=== PATIENT | female | born 1935 | race Caucasian/White ===

== ENCOUNTER 2023-04-07 14:19 | Inpatient (IN) | payer MEDICARE, OTHER ==
[2023-04-07 15:13] LABS: #Basophils 0.1 thou/uL (0.0-0.2); #Eosinphils 0.2 thou/uL (0.0-0.7); #Monocytes 0.6 thou/uL (0.11-0.59); #Neutrophils 3.6 thou/uL (1.40-6.50); %Basophils 0.9 % (0.0-1.0); %Eosinophils 4.1 % (0.0-10.0); %Lymphocytes 18.7 % (21.0-51.0); %Monocytes 10.2 % (0.0-10.0); %Neutrophils 65.7 % (42.0-75.0); Hemoglobin 9.5 g/dL (12.0-16.0); Mean Corpuscular HGB CONC 31.8 g/dL (32.0-36.0); Mean Corpuscular Volume 97.7 fl (78.0-98.0); Mean Platelet Volume 10.6 fL (7.4-10.4); Platelet Count 205 10x3/uL (130-400); RBC Distribution Width 13.8 % (11.5-14.5); Red Blood Cell (RBC) Count 3.06 mill/uL (4.20-5.40); White Blood Cell (WBC) Count 5.4 10x3/uL (4.8-10.8)
[2023-04-07 15:43] LABS: ALT (SGPT) 7 U/L (8-55); AST (SGOT) 15 U/L (5-34); Albumin 3.5 g/dL (3.4-4.8); Alkaline Phosphatase 54 U/L (40-110); Anion Gap 12 mmol/L (10-20); BUN (Urea Nitrogen) 26 mg/dL (9.8-20.1); Bilirubin, Total 0.6 mg/dL (0.2-1.2); Calc. Creatinine Clearance 0 mL/min (70-130); Calcium 9.1 mg/dL (7.8-10.44); Carbon Dioxide 22 mmol/L (23-31); Chloride 105 mmol/L (98-107); Estimated GFR 48; Globulin 2.7 g/dL (2.4-3.5); Glucose 127 mg/dL (83-110); Lipase 20 U/L (8-78); Potassium 4.3 mmol/L (3.5-5.1); Protein, Total 6.2 g/dL (5.8-8.1); Sodium 135 mmol/L (136-145)
[2023-04-07] MEDS ORDERED: Digoxin 0.5 MG/2 ML AMP ONE (17:21)
[2023-04-07] MEDS ORDERED: Ondansetron ODT 4 MG TAB PO PRN (18:43)
[2023-04-07] MEDS ORDERED: Senokot S 8.6-50 MG TAB PO PRN (18:43)
[2023-04-07] MEDS ORDERED: Ondansetron PF 4 MG/2 ML Vial IVP PRN (18:43)
[2023-04-07] MEDS ORDERED: dilTIAZem 125 MG in Sodium Chloride 0.9% 100 ML IVPB SCH (19:30)
[2023-04-07 19:45] LABS: Thyroid Stimulating Hormone 3.1116 uIU/mL (0.35-4.94)
[2023-04-07 21:53] VITALS: BMI 27.0
[2023-04-07 22:20] LABS: Magnesium 1.7 mg/dL (1.6-2.6)
[2023-04-07 22:25] LABS: Troponin I Less than 0.010 ng/mL (< 0.028)
[2023-04-08 00:36] LABS: Troponin I 0.019 ng/mL (< 0.028)
[2023-04-08] MEDS: traMADol HCl 50 MG TAB PO PRN (02:24)
[2023-04-08 03:43] LABS: #Eosinphils 0.2 thou/uL (0.0-0.7); #Monocytes 0.4 thou/uL (0.11-0.59); #Neutrophils 2.6 thou/uL (1.40-6.50); %Basophils 0.7 % (0.0-1.0); %Eosinophils 5.6 % (0.0-10.0); %Lymphocytes 24.1 % (21.0-51.0); %Monocytes 10.2 % (0.0-10.0); %Neutrophils 59.4 % (42.0-75.0); Hemoglobin 9.6 g/dL (12.0-16.0); Mean Corpuscular HGB CONC 31.8 g/dL (32.0-36.0); Mean Corpuscular Hemoglobin 30.7 pg (27.0-31.0); Mean Corpuscular Volume 96.5 fl (78.0-98.0); Mean Platelet Volume 10.2 fL (7.4-10.4); Platelet Count 174 10x3/uL (130-400); RBC Distribution Width 13.6 % (11.5-14.5); Red Blood Cell (RBC) Count 3.13 mill/uL (4.20-5.40); White Blood Cell (WBC) Count 4.3 10x3/uL (4.8-10.8)
[2023-04-08 04:09] LABS: Anion Gap 15 mmol/L (10-20); BUN (Urea Nitrogen) 23 mg/dL (9.8-20.1); Calc. Creatinine Clearance 40 mL/min (70-130); Calcium 9.2 mg/dL (7.8-10.44); Carbon Dioxide 20 mmol/L (23-31); Chloride 105 mmol/L (98-107); Estimated GFR 57; Glucose 98 mg/dL (83-110); Potassium 4.7 mmol/L (3.5-5.1); Sodium 135 mmol/L (136-145)
[2023-04-08] MEDS ORDERED: dilTIAZem 125 MG in Sodium Chloride 0.9% 100 ML IVPB SCH ×2 (05:30→12:30)
[2023-04-08 05:45] LABS: Magnesium 1.7 mg/dL (1.6-2.6)
[2023-04-08] MEDS ORDERED: Metoprolol Tartrate 5 MG/5 ML VIAL IVP SCH (08:15)
[2023-04-08] MEDS: Aspirin Chewable 81 MG TAB PO SCH (08:30)
[2023-04-08] MEDS ORDERED: dilTIAZem 30 MG TAB PO SCH (09:00)
[2023-04-08 14:03] LABS: Bacteria/HPF None Seen HPF (None Seen); Bilirubin Negative (Negative); Blood, Urine Negative (Negative); CAUTI Indications for Culture Dysuria,urgency,freq; Clarity Clear (Clear); Glucose, Urine (Dipstick) Normal (Negative); Ketone, Urine Negative (Negative); Leukocyte 25 Leu/uL (Negative); Nitrite Negative (Negative); Protein, Urine (Dipstick) Negative (Neg-Trace); RBC/HPF 0-3 HPF (0-3); Specific Gravity, Urine 1.013 (1.002-1.036); Squamous Epithelial 0-3 HPF (0-3); Urobilinogen Normal mg/dL (Less than 2); WBC/HPF 0-3 HPF (0-3); pH, Urine 5.5 (5.0-9.0)
[2023-04-08 14:06] LABS: Urine Culture Reflex No No
[2023-04-08] MEDS ORDERED: Digoxin 0.5 MG/2 ML AMP SLOW IVP SCH (18:45)
[2023-04-09] MEDS ORDERED: Metoprolol Tartrate 5 MG/5 ML VIAL IVP SCH (01:00)
[2023-04-09 05:08] LABS: #Eosinphils 0.2 thou/uL (0.0-0.7); #Monocytes 0.6 thou/uL (0.11-0.59); #Neutrophils 3.9 thou/uL (1.40-6.50); %Basophils 0.7 % (0.0-1.0); %Eosinophils 3.1 % (0.0-10.0); %Lymphocytes 19.3 % (21.0-51.0); %Monocytes 10.2 % (0.0-10.0); %Neutrophils 66.5 % (42.0-75.0); Hemoglobin 9.8 g/dL (12.0-16.0); Mean Corpuscular HGB CONC 32.5 g/dL (32.0-36.0); Mean Corpuscular Hemoglobin 30.7 pg (27.0-31.0); Mean Corpuscular Volume 94.7 fl (78.0-98.0); Mean Platelet Volume 10.6 fL (7.4-10.4); Platelet Count 187 10x3/uL (130-400); RBC Distribution Width 13.3 % (11.5-14.5); Red Blood Cell (RBC) Count 3.19 mill/uL (4.20-5.40); White Blood Cell (WBC) Count 5.8 10x3/uL (4.8-10.8)
[2023-04-09 05:48] LABS: Anion Gap 11 mmol/L (10-20); BUN (Urea Nitrogen) 27 mg/dL (9.8-20.1); Calc. Creatinine Clearance 31 mL/min (70-130); Carbon Dioxide 23 mmol/L (23-31); Chloride 104 mmol/L (98-107); Estimated GFR 42; Glucose 102 mg/dL (83-110); Iron 30 ug/dL (50-170); Iron Binding Capacity, Total 238 mcg/dL (265-497); Magnesium 1.9 mg/dL (1.6-2.6); Potassium 4.6 mmol/L (3.5-5.1); Sodium 133 mmol/L (136-145)
[2023-04-09 06:19] LABS: Iron 30 ug/dL (50-170); Iron Binding Capacity, Total 233 mcg/dL (265-497)
[2023-04-09] MEDS: Digoxin 0.125 MG TAB PO SCH (09:17)
[2023-04-09] MEDS: Aspirin Chewable 81 MG TAB PO SCH (09:17)
[2023-04-09] MEDS: traMADol HCl 50 MG TAB PO PRN (13:41)
[2023-04-09 17:00] LABS: Digoxin 2.35 ng/mL (0.8-2.0)
[2023-04-09] MEDS: Acetaminophen 325 MG TAB PO PRN (21:01)
[2023-04-10] MEDS: Melatonin 3 MG TAB PO PRN (01:18)
[2023-04-10 05:08] LABS: #Eosinphils 0.2 thou/uL (0.0-0.7); #Monocytes 0.6 thou/uL (0.11-0.59); #Neutrophils 3.4 thou/uL (1.40-6.50); %Basophils 0.7 % (0.0-1.0); %Eosinophils 4.1 % (0.0-10.0); %Lymphocytes 26.4 % (21.0-51.0); %Monocytes 10.6 % (0.0-10.0); %Neutrophils 57.9 % (42.0-75.0); Hemoglobin 9.8 g/dL (12.0-16.0); Mean Corpuscular HGB CONC 32.2 g/dL (32.0-36.0); Mean Corpuscular Hemoglobin 30.6 pg (27.0-31.0); Mean Platelet Volume 10.5 fL (7.4-10.4); Platelet Count 183 10x3/uL (130-400); RBC Distribution Width 13.2 % (11.5-14.5); White Blood Cell (WBC) Count 5.9 10x3/uL (4.8-10.8)
[2023-04-10 06:01] LABS: Anion Gap 12 mmol/L (10-20); BUN (Urea Nitrogen) 20 mg/dL (9.8-20.1); Calc. Creatinine Clearance 48 mL/min (70-130); Calcium 8.9 mg/dL (7.8-10.44); Carbon Dioxide 21 mmol/L (23-31); Chloride 103 mmol/L (98-107); Estimated GFR 71; Glucose 94 mg/dL (83-110); Magnesium 1.8 mg/dL (1.6-2.6); Potassium 4.1 mmol/L (3.5-5.1); Sodium 132 mmol/L (136-145)
[2023-04-10] MEDS: Furosemide 20 MG TAB PO SCH (09:16)
[2023-04-10] MEDS: Digoxin 0.125 MG TAB PO SCH (09:16)
[2023-04-10] MEDS: traMADol HCl 50 MG TAB PO PRN (09:16)
[2023-04-10] MEDS: Aspirin Chewable 81 MG TAB PO SCH (09:16)
[2023-04-10] MEDS ORDERED: Lidocaine 4% Patch TD SCH (09:30)
[2023-04-10] MEDS: Ferrous Gluconate 324 MG TAB PO SCH (09:35)
[2023-04-10] MEDS: Senokot S 8.6-50 MG TAB PO SCH (20:10)
[2023-04-10] MEDS: Transdermal Patch Removal TOP SCH (20:11)
[2023-04-11] MEDS: Acetaminophen 325 MG TAB PO PRN (00:36)
[2023-04-11] MEDS: Melatonin 3 MG TAB PO PRN (00:36)
[2023-04-11] MEDS: traMADol HCl 50 MG TAB PO PRN ×2 (04:14→20:20)
[2023-04-11 04:24] LABS: #Eosinphils 0.3 thou/uL (0.0-0.7); #Monocytes 0.7 thou/uL (0.11-0.59); #Neutrophils 3.7 thou/uL (1.40-6.50); %Basophils 0.6 % (0.0-1.0); %Eosinophils 4.6 % (0.0-10.0); %Lymphocytes 25.2 % (21.0-51.0); %Monocytes 10.7 % (0.0-10.0); %Neutrophils 58.6 % (42.0-75.0); Hemoglobin 10.3 g/dL (12.0-16.0); Mean Corpuscular HGB CONC 32.5 g/dL (32.0-36.0); Mean Corpuscular Hemoglobin 30.7 pg (27.0-31.0); Mean Corpuscular Volume 94.6 fl (78.0-98.0); Mean Platelet Volume 10.2 fL (7.4-10.4); Platelet Count 201 10x3/uL (130-400); RBC Distribution Width 13.4 % (11.5-14.5); Red Blood Cell (RBC) Count 3.35 mill/uL (4.20-5.40); White Blood Cell (WBC) Count 6.3 10x3/uL (4.8-10.8)
[2023-04-11 04:50] LABS: Anion Gap 22 mmol/L (10-20); BUN (Urea Nitrogen) 23 mg/dL (9.8-20.1); Calc. Creatinine Clearance 36 mL/min (70-130); Calcium 9.2 mg/dL (7.8-10.44); Carbon Dioxide 23 mmol/L (23-31); Chloride 97 mmol/L (98-107); Estimated GFR 51; Glucose 98 mg/dL (83-110); Magnesium 1.8 mg/dL (1.6-2.6); Potassium 4.5 mmol/L (3.5-5.1); Sodium 137 mmol/L (136-145)
[2023-04-11 04:59] LABS: Digoxin 1.93 ng/mL (0.8-2.0)
[2023-04-11] MEDS: Ferrous Gluconate 324 MG TAB PO SCH (08:45)
[2023-04-11] MEDS: Lidocaine 4% Patch TD SCH (08:46)
[2023-04-11] MEDS: Aspirin Chewable 81 MG TAB PO SCH (08:46)
[2023-04-11] MEDS: Digoxin 0.125 MG TAB PO SCH (08:46)
[2023-04-11] MEDS: Furosemide 20 MG TAB PO SCH (08:46)
[2023-04-11] MEDS: Senokot S 8.6-50 MG TAB PO SCH (20:21)
[2023-04-11] MEDS: Transdermal Patch Removal TOP SCH (20:54)
[2023-04-12] MEDS: Acetaminophen 325 MG TAB PO PRN (01:18)
[2023-04-12 04:04] VITALS: TEMP 97.4
[2023-04-12 05:16] LABS: #Eosinphils 0.3 thou/uL (0.0-0.7); #Monocytes 0.6 thou/uL (0.11-0.59); #Neutrophils 2.7 thou/uL (1.40-6.50); %Basophils 0.8 % (0.0-1.0); %Eosinophils 5.5 % (0.0-10.0); %Lymphocytes 27.9 % (21.0-51.0); %Monocytes 11.2 % (0.0-10.0); %Neutrophils 54.4 % (42.0-75.0); Hemoglobin 10.9 g/dL (12.0-16.0); Mean Corpuscular HGB CONC 31.4 g/dL (32.0-36.0); Mean Corpuscular Hemoglobin 30.4 pg (27.0-31.0); Mean Corpuscular Volume 96.9 fl (78.0-98.0); Mean Platelet Volume 10.3 fL (7.4-10.4); Platelet Count 211 10x3/uL (130-400); RBC Distribution Width 13.4 % (11.5-14.5); Red Blood Cell (RBC) Count 3.58 mill/uL (4.20-5.40); White Blood Cell (WBC) Count 4.9 10x3/uL (4.8-10.8)
[2023-04-12 05:38] LABS: Anion Gap 14 mmol/L (10-20); BUN (Urea Nitrogen) 36 mg/dL (9.8-20.1); Calc. Creatinine Clearance 28 mL/min (70-130); Calcium 9.7 mg/dL (7.8-10.44); Carbon Dioxide 25 mmol/L (23-31); Chloride 102 mmol/L (98-107); Estimated GFR 37; Glucose 101 mg/dL (83-110); Potassium 5.1 mmol/L (3.5-5.1); Sodium 136 mmol/L (136-145)
[2023-04-12 07:46] VITALS: BP 134/61
[2023-04-12] MEDS: Lidocaine 4% Patch TD SCH (09:20)
[2023-04-12] MEDS: Digoxin 0.125 MG TAB PO SCH (09:20)
[2023-04-12] MEDS: Furosemide 20 MG TAB PO SCH (09:20)
[2023-04-12] MEDS: Ferrous Gluconate 324 MG TAB PO SCH (09:20)
[2023-04-12] MEDS: Aspirin Chewable 81 MG TAB PO SCH (09:20)
== END 2023-04-12 11:30 | disposition home or self-care (01) | DRG 310 ==
LOC: ERS 14:19 → 2NO 18:25
PROVIDERS: ADMIT Internal Medicine; ATTEND Family Medicine
DX: I48.0 Paroxysmal atrial fibrillation (principal); I48.92 Unspecified atrial flutter; K21.9 Gastro-esophageal reflux disease without esophagitis; E78.5 Hyperlipidemia, unspecified; M19.90 Unspecified osteoarthritis, unspecified site; F41.9 Anxiety disorder, unspecified; F32.A Depression, unspecified; Z66 Do not resuscitate; R32 Unspecified urinary incontinence; G62.9 Polyneuropathy, unspecified; R11.2 Nausea with vomiting, unspecified; D50.9 Iron deficiency anemia, unspecified; Z96.642 Presence of left artificial hip joint; Z96.652 Presence of left artificial knee joint; Z88.8 Allergy status to other drugs, medicaments and biological substances; Z88.2 Allergy status to sulfonamides; Z79.899 Other long term (current) drug therapy; Z79.82 Long term (current) use of aspirin
CPT/HCPCS: 36415; 36416; 71045; 80048; 80053; 80162; 81001; 82607; 82728; 83540; 83550; 83690; 83735; 83880; 84443; 84484; 85025; 93005; 93010; 93306; 96374; J1160; J1650; Q0162